=== PATIENT | female | born 1980 | race American Indian/Alaskan Native ===

== ENCOUNTER 2021-10-02 06:00 | Day surgery (SDC) | payer MEDICAID ==
[~2021-10-02 06:00] MED LIST: SODIUM CHLORIDE 0.9% 1000 ML 1,000 ML IV SCH; ceFAZolin/Water 2 GM/20 ML 2 GM/20 ML SYRINGE IV NR
--- NOTE | 2021-10-02 07:13 | History and Physical Report ---
History of Present Illness Date of examination: 10/02/21 Chief complaint: Dysfunctional Uterine Bleeding History of present illness: Pt is a 40 year old female who presents for surgical management of dysfunctional uterine bleeding. She is not a candidate for hormonal therapy due to her cardiac status. Past History Past Medical History: heart disease (Heart Failure ), hypertension, thyroid disease (Hypothyroidism ), other (Anxiety, Depression ) Past Surgical History: thyroid (thyroidectomy ), section (x2 ), pacemaker [employer] History: abnormal PAP smear, chlamydia (remote history), gonorrhea (remote history ) Family/Genetic History: diabetes, hypertension Social history: no significant social history - Obstetrical History : 2 Para: 2 Hx # Term Pregnancies: 1 Number of Pregnancies: 1 Spontaneous Abortions: 0 Induced : 0 Number of Living Children: 2 Medications and Allergies Allergies Allergy/AdvReac Type Severity Reaction Status Date / Time No Known Allergies Allergy Verified 10/01/21 17:17 Home Medications Medication Instructions Recorded Confirmed Last Taken Type Digoxin [Lanoxin] 0.125 mg PO DAILY 07/17/21 09/23/21 Unknown History Furosemide [Lasix] 20 mg PO QDAY 07/17/21 09/23/21 Unknown History Ibuprofen [Motrin] 800 mg PO BID PRN 07/17/21 09/23/21 Unknown History Levothyroxine Sodium 137 mcg PO DAILY 07/17/21 09/23/21 Unknown History [Levothyroxine] Spironolactone [Aldactone] 12.5 mg PO QDAY 07/17/21 09/23/21 Unknown History carvediloL [Coreg] 6.25 mg PO BID 07/17/21 09/23/21 Unknown History lisinopriL [Lisinopril] 10 mg PO DAILY 07/17/21 09/23/21 Unknown History Active Meds: Active Medications Sodium Chloride (Nacl 0.9% 1000 Ml) 1,000 mls @ 75 mls/hr IV DIRECT MAURY Cefazolin Sodium (Ancef/Sterile Water 2 Gm/20 Ml) 2 gm in 20 mls @ 80 mls/hr IV PREOP NR; Protocol Stop: 10/02/21 23:59 Review of Systems All systems: negative - Physical Exam Breasts: Positive: deferred Lungs: Positive: Clear to auscultation Abdomen: Positive: soft Uterus: Positive: normal size Extremities: Positive: edema (trace) Results All other labs normal. Assessment and Plan A: Dysfunctional Uterine Bleeding Hypertension Chronic Systolic Heart Failure Presence of Cardiac Defibrillator Cardiomyopathy Hypothyroidism P: Cardiac clearance from 09/11/21 on chart Proceed with Hysteroscopy, D&C, Novasure endometrial ablation and other indicated procedures
[2021-10-02] MEDS ORDERED: SILVER NITRATE APPLICATOR 1 EA TP ONE ×2 (07:18→08:55)
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
[2021-10-02] MEDS ORDERED: LIDOCAINE MPF (2%) 20 MG/1 ML VIAL 5 ML ONE (07:23)
--- NOTE | 2021-10-02 07:23 | Anesthesia Day of Surgery ---
Anesthesia Day of Surgery - Day of Surgery Patient Examined: Yes Patient H&P Reviewed: Yes Patient is NPO: Yes Beta Blockers: Yes Cardiac Clearance: Yes
[2021-10-02] MEDS ORDERED: propofoL 200 MG/20 ML VIAL IV ONE (07:24)
[2021-10-02] MEDS ORDERED: fentaNYL 100 MCG/2 ML INJ ONE (07:24)
[2021-10-02 07:29] LABS: BUN/Creatinine Ratio 17; Blood Urea Nitrogen 12 mg/dL (7-17); Calcium 8.7 mg/dL (8.4-10.2); Hemolysis Index 10
[2021-10-02] MEDS ORDERED: FAMOTIDINE 20 MG/2 ML INJ IV NR (08:00)
[2021-10-02] MEDS ORDERED: MIDAZOLAM 2 MG/2 ML INJ IV NR (08:00)
[2021-10-02] MEDS ORDERED: ePHEDrine SULFATE 50 MG/1 ML INJ ONE (08:00)
[2021-10-02] MEDS ORDERED: SODIUM CHLORIDE 0.9% IRR 1,500 ML BOTTLE IR ONE (08:55)
[2021-10-02] MEDS ORDERED: SODIUM CHLORIDE 0.9% IRRIG SOLN 3000 ML IR ONE (08:55)
[2021-10-02] MEDS ORDERED: KETOROLAC 30 MG/1 ML INJ ONE (09:00)
[2021-10-02] MEDS ORDERED: ONDANSETRON 4 MG/2 ML INJ ONE (09:00)
[2021-10-02] MEDS ORDERED: dexAMETHasone 20 MG/5 ML VIAL ONE (09:00)
--- NOTE | 2021-10-02 09:08 | Operative Report ---
Operative Report Operative Report: Date of Procedure: September Preoperative Diagnosis: Dysfunctional Uterine Bleeding Postoperative Diagnosis: Same Procedure: 1) Hysteroscopy 2) Myosure endometrial sampling 3) Novasure endometrial ablation Surgeon: Kristen Gillis MD Findings: 1) Anteverted uterus that sounded to 10 cm 2) Proliferative tissue in endometrial cavity visible on hysteroscopy Anesthesia: GETA EBL: 25 mL Deficit: 175 mL Urine output: 125 mL, clear prior to the procedure Specimen: Endometrial curettings to pathology Complications: None. Counts correct x 2 Disposition: Stable to PACU Indication for Procedure: The patient is a 40 year old female who presents for surgical management of dysfunctional uterine bleeding. Operation in detail: After the risks, complications, alternatives and benefits were signed to the patient she gave informed consent for the procedure. She was subsequently taken to the operating room with her IV noted to be running well and placed in the dorsal supine position. SCDs were noted to be in place and functioning. General anesthesia was then induced without difficulty. The patient was then placed in the dorsal lithotomy position and prepped and draped in normal sterile fashion. A timeout was performed. An exam under anesthesia revealed an anteverted uterus. The bladder was then drained with a catheter yielding 125 mL of clear urine. An open sided bivalve speculum was placed into the vagina for adequate visualization of the cervix. A single-tooth tenaculum was placed on the anterior lip of the cervix for traction. The uterus was then gently sounded to 10 cm. The cervix was then serially dilated with Correa dilators to a #19. The hysteroscope was then in troduced into the uterine cavity with findings of a proliferative endometrium. At this time, the Myosure device was introduced to sample the endometrial cavity performed per protocol. Subsequently all instruments were removed from the uterus atraumatically. At this time, attention was turned to the endometrial ablation. The cervical length was then sounded to 5.5 cm and the uterus was then sounded to 10 cm. The cavity length was then noted to be 4.5 cm. The disposable NovaSure device was connected to the RF controller. The NovaSure disposable device was deployed to the locked position and noted to fully extend. The device was then placed in the unlocked position. The disposable device was then inserted into the uterine cavity with traction on the tenaculum. The device was then seated per protocol. After moving the device back 0.5 cm, the device was moved superiorly and inferiorly and rotated clockwise and counterclockwise to 45. The cavity width at this time was noted to be 4.8 cm. The cervical collar was then advanced to the cervix. The cavity assessment was then initiated and passed. The ablation procedure was then initiated and lasted for 1 minute 52 seconds. The cervical collar was moved away from the cervix, the device was moved to the unlocked position, and the disposable NovaSure device was removed from the uterine cavity. The hysteroscope was reintroduced to visualize the charred endometrial cavity. At this time the single-tooth tenaculum was removed from the cervix. The tenaculum puncture sites were hemostatic with use of pressure and silver nitrate. All instruments were removed from the vagina and the procedure was ended. The patient was replaced into the dorsal supine position and extubated without difficulty. She was subsequently taken to the PACU in stable condition. She tolerated the procedure well. All counts were correct 2.
--- NOTE | 2021-10-02 09:10 | Short Stay Summary ---
Short Stay Documentation Date of service: 10/02/21 - History H&P: dictated Social history: no significant social history - Allergies and Medications Current Medications: Allergies No Known Allergies Allergy (Verified 10/01/21 17:17) Home Medications Medication Instructions Recorded Confirmed Last Taken Type Digoxin [Lanoxin] 0.125 mg PO DAILY 07/17/21 09/23/21 Unknown History Furosemide [Lasix] 20 mg PO QDAY 07/17/21 09/23/21 Unknown History Ibuprofen [Motrin] 800 mg PO BID PRN 07/17/21 09/23/21 Unknown History Levothyroxine Sodium 137 mcg PO DAILY 07/17/21 09/23/21 Unknown History [Levothyroxine] Spironolactone [Aldactone] 12.5 mg PO QDAY 07/17/21 09/23/21 Unknown History carvediloL [Coreg] 6.25 mg PO BID 07/17/21 09/23/21 Unknown History lisinopriL [Lisinopril] 10 mg PO DAILY 07/17/21 09/23/21 Unknown History Active Medications Famotidine (Famotidine 20 Mg/2 Ml Inj) 20 mg IV PREOP NR Stop: 10/02/21 12:00 Sodium Chloride (Nacl 0.9% 1000 Ml) 1,000 mls @ 75 mls/hr IV DIRECT MAURY Cefazolin Sodium (Ancef/Sterile Water 2 Gm/20 Ml) 2 gm in 20 mls @ 80 mls/hr IV PREOP NR; Protocol Stop: 10/02/21 23:59 Midazolam HCl (Midazolam 2 Mg/2 Ml Inj) 2 mg IV PREOP NR Stop: 10/02/21 23:59 - Physical exam Breasts: deferred - Brief post op/procedure progress note Date of procedure: 10/02/21 Pre-op diagnosis: Dysfunctional Uterine Bleeding Post-op diagnosis: same Procedure: 1) Hysteroscopy 2) Myosure endometrial sampling 3) Novasure endometrial ablation Anesthesia: GETA (with LMA ) Findings: 1) Anteverted uterus that sounded to 10 cm 2) Proliferative tissue in endometrial cavity visible on hysteroscopy Surgeon: KIRK MINER Estimated blood loss: minimal (25 mL) Pathology: list (endometrital curretings) Specimen disposition: to lab Condition: stable - Hospital course Hospital course: Patient underwent hysteroscopy, MyoSure endometrial sampling and NovaSure endometrial ablation which he tolerated well. She was observed in the PACU until she met discharge criteria. She will follow-up in the office in 2 weeks. - Disposition Condition at discharge: Stable Disposition: 01 HOME / SELF CARE / HOMELESS - Discharge Diagnoses (1) Dysfunctional uterine bleeding Status: Acute (2) Heart failure Status: Acute Qualifiers: Heart failure type: systolic Heart failure chronicity: chronic Qualified Code(s): I50.22 - Chronic systolic (congestive) heart failure (3) Hypertension Status: Acute Qualifiers: Hypertension type: unspecified Qualified Code(s): I10 - Essential (primary) hypertension Short Stay Discharge Plan Activity: other (Nothing in vagina, no intercourse, no tub baths, no swimming for 4 weeks) Weight Bearing Status: Full Weight Bearing Diet: regular Follow up with: Wendy MACE [Other] - 7 Days KIRK MINER MD [Staff Physician] - 14 Days (Please call to schedule postoperative appointment)
[2021-10-02] MEDS ORDERED: HYDROmorphone 0.5 MG/0.5 ML INJ IV PRN (10:00)
[2021-10-02 10:59] VITALS: BP 141/84
--- NOTE | 2021-10-02 11:25 | Post Anesthesia Evaluation ---
- Post Anesthesia Evaluation Patient Participated: Yes Airway Patent: Yes Stable Respiratory Function: Yes Nausea/Vomiting: No Temp > 96.8F: Yes Pain Manageable: Yes Adequeate Hydration: Yes Anesthesia Complications: No Block Receding Appropriately: Not Applicable Patient on Ventilator: No
== END 2021-10-02 10:25 | disposition home or self-care (01) ==
LOC: OR 06:00
PROVIDERS: ATTEND Obstetrics & Gynecology
DX: N93.8 Other specified abnormal uterine and vaginal bleeding (principal); I11.0 Hypertensive heart disease with heart failure; I50.9 Heart failure, unspecified; G43.909 Migraine, unspecified, not intractable, without status migrainosus; E03.9 Hypothyroidism, unspecified; F32.9 Major depressive disorder, single episode, unspecified; Z79.899 Other long term (current) drug therapy; Z95.0 Presence of cardiac pacemaker; Z87.01 Personal history of pneumonia (recurrent); Z98.891 History of uterine scar from previous surgery; Z87.440 Personal history of urinary (tract) infections; Z72.89 Other problems related to lifestyle; Z98.890 Other specified postprocedural states
CPT/HCPCS: 36415; 58563; 80048; 81025; 88305; C1782; J0690; J1100; J1170; J1885; J2250; J2405; J2704; J3010; J3490; J7030